=== PATIENT | male | born 1940 | race Caucasian/White ===

== ENCOUNTER 2024-12-25 06:30 | Day surgery (SDC) | payer MEDICARE ==
[~2024-12-25] VITALS: Ht 188 cm; Wt 90.7 kg
[2024-12-25] VITALS (12 sets, daily range): BP systolic 72–127; BP diastolic 44–74; PULSE 55–65; RESP 12–18; TEMP 97.1–98
[~2024-12-25 06:30] MED LIST: APIX2.5T PO; CARB-38 PO; LANS15CA17 PO; LEVO25TA54 PO; MONT-39 PO; ROSU5TAB51 PO
[2024-12-25] MEDS: 0.9%NACL 1000ML 1,000 ML IV ONE (07:40)
[2024-12-25] MEDS ORDERED: proPOFol 10 MG/ML 20ML VIAL IV ONE ×2 (09:27)
--- NOTE | 2024-12-25 10:54 | NUR ---
Full and complete Discharge Instructions given to Patient and Family both verbally and in writing.. All questions answered.Voiced understanding to GI procedure precautions and Follow Up. PIV removed with catheter tip intact. Denies c/o pain or discomfort. W/C to POV with Family to home.
== END 2024-12-25 11:14 | disposition home or self-care (01) ==
LOC: DAH 06:30 → ENDO 06:30
PROVIDERS: ATTEND Internal Medicine Gastroenterology
DX: K22.711 Barrett's esophagus with high grade dysplasia (principal); K22.2 Esophageal obstruction; K29.50 Unspecified chronic gastritis without bleeding; K21.00 Gastro-esophageal reflux disease with esophagitis, without bleeding; R19.7 Diarrhea, unspecified; M19.90 Unspecified osteoarthritis, unspecified site; E03.9 Hypothyroidism, unspecified; G20.A1 Parkinson's disease without dyskinesia, without mention of fluctuations; Z85.828 Personal history of other malignant neoplasm of skin; Z86.0100 Personal history of colon polyps, unspecified; Z86.73 Personal history of transient ischemic attack (TIA), and cerebral infarction without residual deficits; Z98.42 Cataract extraction status, left eye; Z98.890 Other specified postprocedural states; Z79.899 Other long term (current) drug therapy
CPT/HCPCS: 43249; 43239; J7030 ×2; J2704 ×2; A4620; A4215; A4223; A7002; A4222; A4221; A4663; A4606; C1726; J3490